=== PATIENT | male | born 1985 | race Caucasian/White ===

== ENCOUNTER 2017-11-08 00:19 | Emergency (ER) | payer OTHER ==
[2017-11-08 00:54] VITALS: BP 120/66; PULSE 53; TEMP 98.4; BMI 26.4
--- NOTE | 2017-11-08 02:50 | PDOC ---
History of Present Illness - General Chief Complaint: Eye Problem Stated Complaint: LEFT EYE PAIN Time Seen by Provider: 11/08/17 01:47 History Source: Patient - History of Present Illness Initial Comments: 11/08/17 02:45 32 year old male c/o left eye periorbital pain after knocking heavy weight accidentally to eye earlier yesterday at the gym. + bruising around eye. no pain to eye with movement. no vision changes. Past History - Past Medical History Allergies/Adverse Reactions: Allergies Allergy/AdvReac Type Severity Reaction Status Date / Time shellfish derived Allergy Verified 11/08/17 00:42 Home Medications: Ambulatory Orders NK [No Known Home Medication] 12/24/15 COPD: No - Surgical History Abdominal Surgery: Yes (hernia repair) Appendectomy: Yes - Immunization History Td Vaccination: Yes Immunization Up to Date: Yes - Suicide/Smoking/Psychosocial Hx Smoking Status: No Smoking History: Never smoked Years of Tobacco Use: 0 Have you smoked in the past 12 months: No Number of Cigarettes Smoked Daily: 0 Cigars Per Day: 0 Information on smoking cessation initiated: No Hx Alcohol Use: No Drug/Substance Use Hx: No Substance Use Type: None *Physical Exam - Vital Signs Last Vital Signs Temp Pulse Resp BP Pulse Ox 98.4 F 53 L 14 120/66 96 11/08/17 00:42 11/08/17 00:42 11/08/17 00:42 11/08/17 00:42 11/08/17 00:42 - Physical Exam General Appearance: Yes: Appropriately Dressed HEENT: positive: Other (left perioribtal bruising and redness. +PERRLA, snellen 20/70 to both eyes (this is baseline) mild localized tenderness) Medical Decision Making - Medical Decision Making 11/08/17 02:51 A: eye injury; hematoma P: ice/warm compress *DC/Admit/Observation/Transfer Diagnosis at time of Disposition: Periorbital ecchymosis of left eye Qualifiers: Encounter type: initial encounter Qualified Code(s): S00.12XA - Contusion of left eyelid and periocular area, initial encounter - Discharge Dispostion Disposition: HOME - Referrals Referrals: Benjamín Galvez MD [Staff Physician] - - Patient Instructions Printed Discharge Instructions: Eye Contusion Additional Instructions: apply ice to the area follow up with the manufacturing maintenance manager. - Post Discharge Activity
== END 2017-11-08 03:09 | disposition home or self-care (01) ==
LOC: JER 00:19
DX: S00.12XA Contusion of left eyelid and periocular area, initial encounter (principal); W20.8XXA Other cause of strike by thrown, projected or falling object, initial encounter; Y93.89 Activity, other specified; Y92.39 Other specified sports and athletic area as the place of occurrence of the external cause
CPT/HCPCS: 99282-25

== ENCOUNTER 2018-08-30 19:54 | Emergency (ER) | payer OTHER ==
--- NOTE | 2018-08-30 19:58 | PDOC ---
Rapid Medical Evaluation Chief Complaint: Injury Time Seen by Provider: 08/30/18 19:55 Medical Evaluation: Allergies Allergy/AdvReac Type Severity Reaction Status Date / Time shellfish derived Allergy Verified 11/08/17 00:42 08/30/18 19:56 I have performed a brief in person evaluation of this patient. The patient present with a CC of: 3rd digit left foot Pt states he hit his third digit left foot on "something" at 0200 this morning. Pertinent PE findings: Lungs Clear Heart: RRR MS: Pt has pain upon palpation to the 1st, second and third digit left food. No rotational deformity. Pedal pulses present, cap refill less than two seconds, sensation intact. I have ordered the following: foot xray The patient will proceed to the [facility] for further evaluation: Discharge Disposition - Diagnosis Foot pain Qualifiers: Laterality: left Qualified Code(s): M79.672 - Pain in left foot - Referrals - Patient Instructions - Post Discharge Activity
[2018-08-30 20:09] VITALS: BP 119/76; PULSE 72; TEMP 98.1; BMI 25.5
--- NOTE | 2018-08-30 20:34 | PDOC ---
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 Patient states the pain woke him up and he was able to walk and return to bed. When he woke up this morning he had increased pain with flexion of the toe. Patient states the pain got worse throughout the day. Taking [id number] pain medication and is here now for evaluation. No recent travel or sick contacts. PAST MEDICAL HISTORY: Denies past medical history SURGICAL HISTORY: Denies ALLERGIES: shellfish REVIEW OF SYSTEMS General/Constitutional: Denies fever or chills. Denies weakness, weight change. HEENT: Denies change in vision. Denies ear pain or discharge. Denies sore throat. Cardiovascular: Denies chest pain or shortness of breath. Respiratory: Denies cough, wheezing, or hemoptysis. Gastrointestinal: Denies nausea, vomiting, diarrhea or constipation. Denies rectal bleeding. Genitourinary: Denies dysuria, frequency, or change in urination. Musculoskeletal: DLeft 3rd toe pain. Denies neck or back pain. Skin and breasts: Denies rash or easy bruising. Neurologic: Denies headache, vertigo, loss of consciousness, or loss of sensation. Psychiatric: Denies depression or anxiety. Endocrine: Denies increased thirst. Denies abnormal weight change. Hematologic/Lymphatic: Denies anemia, easy bleeding, or history of blood clots. Allergic/Immunologic: Denies hives or skin allergy. Denies latex allergy. PHYSICAL EXAM General Appearance: Well-appearing, appropriately dressed. No apparent distress , no intoxication. HEENT: EOMI, PERRLA, normal ENT inspection, normal voice, TMs normal, pharynx normal. No conjunctival pallor. No photophobia, scleral icterus. Neck: Supple. Trachea midline. No tenderness, rigidity, carotid bruit, stridor , lymphadenopathy, or thyromegaly. Respiratory/Chest: Lungs CTAB. No shortness of breath, chest tenderness, respiratory distress, accessory muscle use. No crackles, rales, rhonchi, stridor , wheezing, dullness Cardiovascular: RRR. S1, S2. No JVD, murmur, bradycardia, tachycardia. Vascular Pulses: Dorsalis-Pedis (R): 2+, Dorsalis-Pedis (L): 2+ Gastrointestinal/Abdominal: Normal bowel sounds. Abdomen soft, non-distended. No tenderness or rebound tenderness. No organomegaly, pulsatile mass, guarding, hernia, hepatomegaly, splenomegaly. Lymphatic: No adenopathy, tenderness. Musculoskeletal/Extremities: Normal inspection. FROM of all extremities, normal capillary refill. Pelvis Stable. No CVA tenderness. Tender to palpation over the proximal phalanx of the third digit of the left foot. No erythema noted. No obvious deformities present. No crepitus. Integumentary: Appropriate color, dry, warm. No cyanosis, erythema, jaundice or rash Neurologic: mva operator II-XII intact. Fully oriented, alert. Appropriate mood/affect. Motor strength 5/5. No appreciable EOM palsy, facial droop or sensory deficit. Past History - Past Medical History Allergies/Adverse Reactions: Allergies Allergy/AdvReac Type Severity Reaction Status Date / Time shellfish derived Allergy Verified 08/30/18 19:59 Home Medications: Ambulatory Orders NK [No Known Home Medication] 12/24/15 COPD: No - Surgical History Abdominal Surgery: Yes (hernia repair) Appendectomy: Yes - Immunization History Td Vaccination: Yes Immunization Up to Date: Yes - Suicide/Smoking/Psychosocial Hx Smoking Status: No Smoking History: Never smoked Years of Tobacco Use: 0 Have you smoked in the past 12 months: No Number of Cigarettes Smoked Daily: 0 Cigars Per Day: 0 Information on smoking cessation initiated: No Hx Alcohol Use: No Drug/Substance Use Hx: No Substance Use Type: None *Physical Exam - Vital Signs Last Vital Signs Temp Pulse Resp BP Pulse Ox 98.1 F 72 18 119/76 100 08/30/18 19:56 08/30/18 19:56 08/30/18 19:56 08/30/18 19:56 08/30/18 19:56 Medical Decision Making - Medical Decision Making 08/30/18 20:29 A/P: 33-year-old male without significant medical history with left third toe pain status post kicking a table in the middle the night while sleeping walking X-rays of the left foot Patient is refusing analgesia X-rays as read by me: Nondisplaced spiral fracture of the shaft of the proximal phalanx third digit of the left foot Vikram tape Discharge home with podiatry follow-up as needed *DC/Admit/Observation/Transfer Diagnosis at time of Disposition: Phalanx fracture, foot Qualifiers: Encounter type: initial encounter Toe: lesser toe Fracture type: closed Phalanx : proximal Fracture alignment: nondisplaced Laterality: left Qualified Code(s): S92.515A - Nondisplaced fracture of proximal phalanx of left lesser toe(s), initial encounter for closed fracture - Discharge Dispostion Disposition: HOME Condition at time of disposition: Stable Decision to Admit order: No - Referrals Referrals: Joe Wyman MD [Staff Physician] - - Patient Instructions Additional Instructions: Keep her toes taped together to help provide stability of your fractured toe. Wear hard sole shoe at all times until evaluated by podiatry. 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 Please call to schedule follow- up appointment for reevaluation. Take Tylenol or Aleve as needed for pain. Follow manufacture's instructions for appropriate dosage. Return to emergency department for any concerns. Thank you very much for choosing us to provide your emergent health care needs. - Post Discharge Activity Forms/Work/School Notes: Back to Work
== END 2018-08-30 20:51 | disposition home or self-care (01) ==
LOC: JER 19:54 → JERFT 19:54
DX: S92.515A Nondisplaced fracture of proximal phalanx of left lesser toe(s), initial encounter for closed fracture (principal); F51.3 Sleepwalking [somnambulism]; W22.8XXA Striking against or struck by other objects, initial encounter; Y93.89 Activity, other specified; Y92.038 Other place in apartment as the place of occurrence of the external cause; Y99.8 Other external cause status
CPT/HCPCS: 73630-TC-LT; 99281-25